=== PATIENT | female | born 1990 | race African-American/Black ===

== ENCOUNTER 2017-03-20 16:48 | Emergency (ER) | payer BC, OTHER ==
[~2017-03-20] VITALS: Ht 157.5 cm; Wt 104.3 kg
[~2017-03-20 16:48] MED LIST: FLAGYL500 MG PO; NORCO 5-325 TA1 EACH PO; TRIAMCINOLONE A80 G2 TOP; TRISPRINTEC; ZYRTEC10 M2 PO
[2017-03-20 16:49] VITALS: BP 112/71
[2017-03-20] MEDS ORDERED: KEFLEX500 MG PO (17:40)
== END 2017-03-20 18:25 | disposition home or self-care (01) ==
LOC: ER 16:48
DX: H00.031 Abscess of right upper eyelid (principal); F10.99 Alcohol use, unspecified with unspecified alcohol-induced disorder